=== PATIENT | male | born 1965 | race Caucasian/White ===

== ENCOUNTER → 2021-07-17 11:54 | Outpatient (BNVA) | payer SELFPAY | PROVIDERS: Visit Provider Registered Nurse Neonatal Intensive Care | DX: N39.0 Urinary tract infection, site not specified (principal); M54.9 Dorsalgia, unspecified | CPT/HCPCS: 81000 ==

== ENCOUNTER 2021-09-14 11:34 | Emergency (ER) | payer OTHER, SELFPAY ==
[2021-09-14 11:41] VITALS: BP 190/100; PULSE 76; RESP 18; TEMP 36.5; O2SAT 99
--- NOTE | 2021-09-14 11:45 | ED_ITS ---
HPI - Fall General: Chief Complaint: Fall Stated Complaint: Fell a few weeks ago, hit his right side Time Seen by Provider: 09/14/21 11:44 Source: patient Mode of arrival: ambulatory Limitations: no limitations History of Present Illness: 55-year-old male who fell 2 weeks ago while working. He hit the end of the log when he fell. He has not had any hematuria no vomiting no diarrhea. This occurred 2 weeks ago is still mildly tender he states. He has been eating and drinking without difficulty bowel movements have been normal. No hematuria. No other injuries at time of the fall. MD complaint: fall Onset (ago): week(s) (2) Fall from: standing Place fall occurred: home Loss of consciousness: None Prolonged down time: no Symptoms prior to fall: none Context: tripped/slipped Location of injury: abdomen Severity: mild Quality: dull and aching Associated symptoms-after fall: Reports abdominal pain; Denies chest pain, confusion, difficulty walking, headache(s), hematuria, lightheadedness, neck pain, numbness, short of breath, vertigo or weakness Review of Systems Const: Denies: fever(s), chills, body aches, change in appetite, fatigue or malaise ENMT: Denies: throat pain, ear or mastoid pain, nasal discharge or nasal congestion Card: Denies: chest pain or lightheadedness Resp: Denies: dyspnea, productive cough or non-productive cough GI: Reports: abdominal pain; Denies: nausea, vomiting, hematemesis, coffee ground emesis, early satiety, diarrhea, bloating or GI cramping : Denies: flank pain, difficulty urinating, dysuria, urinary frequency, urinary urgency or hematuria Musc: Denies: neck pain Skin/Breast: Denies: rash or pruritus Neuro: Denies: headache(s), difficulty walking, vertigo or confusion PFSH ED PFSH: Medical History (Updated 09/14/21 @ 13:05 by Tramaine Walton DO) No significant past medical history Surgical History (Updated 09/14/21 @ 11:54 by Tramaine Walton DO) No significant past surgical history Social History (Updated 09/14/21 @ 11:54 by Tramaine Walton DO) Smoking and tobacco status: never smoked Alcohol intake: never Physical Exam Const: COMMON NORMALS: no acute distress GENERAL APPEARANCE: cooperative and comfortable ORIENTATION/CONSCIOUSNESS: Yes awake, Yes oriented to person, Yes oriented to place and Yes oriented to time HENMT: COMMON NORMALS: normocephalic, atraumatic and hearing grossly normal bilaterally HEAD & SCALP: normocephalic and atraumatic Neck/C-Spine: COMMON NORMALS: no JVD Resp: COMMON NORMALS: normal respiratory effort, No retractions, No use of accessory muscles and clear to auscultation bilaterally AUSCULTATION: clear to auscultation bilaterally Cardio: COMMON NORMALS: no JVD, regular rate, regular rhythm and No murmurs present (Cardio) RATE: regular rate RHYTHM: regular rhythm GI: COMMON NORMALS: Soft to palpation and No hepatosplenomegaly present AUSCULTATION: Yes normoactive bowel sounds PALPATION: Yes Soft to palpation, No Tenderness to palpation present (GI), No Guarding due to palpation present (G I) and Yes No hepatosplenomegaly present Extremity: COMMON NORMALS: normal to inspection, capillary refill normal, no clubbing, cyanosis or edema, no calf tenderness and no pedal edema Neuro: SENSORIUM/ORIENTATION: Yes oriented to person, Yes oriented to place and Yes oriented to time Skin: COMMON NORMALS: no rashes or lesions noted GENERAL SKIN EXAM: no rashes or lesions noted Course Vital Signs: Vital signs: Vital Signs Temperature 97.7 F 09/14/21 11:41 Pulse Rate 76 09/14/21 11:41 Respiratory Rate 18 09/14/21 11:41 Blood Pressure 190/100 09/14/21 11:41 Pulse Oximetry 99 09/14/21 11:41 MDM - Fall Medical Decision Making Labs unremarkable repeat exam negative. His hemoglobin is good his abdominal exam is benign. He has no pain with palpation over the ribs on that side is a very faint bruise on the lateral portion abdominal wall. His has not had any vomiting or diarrhea his bowels been working well this happened 2 weeks ago. No advanced imaging indicated at this time we will have him use diclofenac as needed follow-up as needed. Medical Records I reviewed the patient's medical records. Lab Data I reviewed the patient's lab results. : 09/14/21 11:58 09/14/21 12:17 Laboratory Results WBC 8.4 10^3/uL (4.0-10.0) 09/14/21 11:58 RBC 5.41 10^6/uL (4.1-5.3) H 09/14/21 11:58 Hgb 15.4 g/dL (11.7-16.6) 09/14/21 11:58 Hct 46.6 % (42.0-52.0) 09/14/21 11:58 MCV 86.1 fl (80-94) 09/14/21 11:58 MCH 28.5 pg (28.0-34.0) 09/14/21 11:58 MCHC 33.0 g/dL (30.0-36.0) 09/14/21 11:58 RDW 13.1 % (12.1-15.1) 09/14/21 11:58 Plt Count 300 10^3/cmm (130-400) 09/14/21 11:58 MPV 9.7 fL (7.4-10.4) 09/14/21 11:58 Neut % (Auto) 71.7 % 09/14/21 11:58 Lymph % (Auto) 18.0 % 09/14/21 11:58 [place] % (Auto) 7.6 % 09/14/21 11:58 Eos % (Auto) 1.5 % 09/14/21 11:58 Baso % (Auto) 0.4 % 09/14/21 11:58 Neut # (Auto) 6.04 10^3/uL (1.8-7.7) 09/14/21 11:58 Lymph # (Auto) 1.5 10^3/uL (0.8-4.8) 09/14/21 11:58 [place] # (Auto) 0.6 10^3/uL (0.2-0.9) 09/14/21 11:58 Eos # (Auto) 0.1 10^3/uL (0.0-0.8) 09/14/21 11:58 Baso # (Auto) 0.0 10^3/uL (0.0-0.1) 09/14/21 11:58 Nucleated RBC % (auto) 0 % 09/14/21 11:58 Nucleated RBCs # 0.0 /100WBC 09/14/21 11:58 Sodium 139 mmol/L (136-145) 09/14/21 12:17 Potassium 3.9 mmol/L (3.5-5.1) 09/14/21 12:17 Chloride 105 mmol/L (98-107) 09/14/21 12:17 Carbon Dioxide 24 mmol/L (22-29) 09/14/21 12:17 Anion Gap 13.9 (5-19) 09/14/21 12:17 BUN 12 mg/dL (6-20) 09/14/21 12:17 Creatinine 0.9 mg/dL (0.7-1.2) 09/14/21 12:17 GFR Calculation 87.0 mL/min (90-130) L 09/14/21 12:17 Glucose 117 mg/dL (65-115) H 09/14/21 12:17 Calculated Osmolality 289 mOsm/kg (285-295) 09/14/21 12:17 Calcium 8.9 mg/dL (8.5-10.5) 09/14/21 12:17 Urine Color Yellow (Yellow) 09/14/21 11:50 Urine Appearance Clear (CLEAR) 09/14/21 11:50 Urine pH 8 (5-7) H 09/14/21 11:50 Ur Specific [place] 1.010 (1.005-1.030) 09/14/21 11:50 Urine Protein Neg (Negative) 09/14/21 11:50 Urine Glucose (UA) Norm (Normal) 09/14/21 11:50 Urine Ketones Negative (Negative) 09/14/21 11:50 Urine Blood Neg (Negative) 09/14/21 11:50 Urine Nitrate Negative (Negative) 09/14/21 11:50 Urine Bilirubin Neg (Negative) 09/14/21 11:50 Prot Sulfosalicylic Acd Negative (Negative) 09/14/21 11:50 Urine Urobilinogen Norm mg/dL (Negative) 09/14/21 11:50 Ur Leukocyte Esterase Negative (Negative) 09/14/21 11:50 Discharge Plan Discharge Patient Disposition: Home Clinical Impression: Abdominal wall pain Condition: Stable Prescriptions: New diclofenac sodium 75 mg tablet,delayed release (DR/EC) 75 mg PO Q12H PRN (Reason: pain) Qty: 20 0RF No Action baclofen 5 mg tablet 5 mg PO TID PRN (Reason: muscle spasm) Qty: 20 0RF Discharge Orders: Discharge ED (Routine); Ordered 09/14/21 Ordered By: Tramaine Walton Discharge Diet: Usual diet Discharge Activity: Resume usual activity Patient Instructions: Opioid Safety Coding Level of Care Code ED Reimbursement Rep for Ethel Fwd Exam Comprehensive
[2021-09-14 12:07] LABS: Basophils % 0.4 %; Eosinophils # 0.1 10^3/uL (0.0-0.8); Eosinophils % 1.5 %; Hematocrit 46.6 % (42.0-52.0); Hemoglobin 15.4 g/dL (11.7-16.6); Lymphocytes # 1.5 10^3/uL (0.8-4.8); Mean Corpuscular Hemoglobin 28.5 pg (28.0-34.0); Mean Corpuscular Volume 86.1 fl (80-94); Mean Platelet Volume 9.7 fL (7.4-10.4); Monocytes # 0.6 10^3/uL (0.2-0.9); Monocytes % 7.6 %; Neutrophils # 6.04 10^3/uL (1.8-7.7); Neutrophils % 71.7 %; Nucleated Red Blood Cells % 0 %; Platelet Count 300 10^3/cmm (130-400); Red Blood Count 5.41 10^6/uL (4.1-5.3); Red Cell Distribution Width 13.1 % (12.1-15.1); White Blood Count 8.4 10^3/uL (4.0-10.0)
[2021-09-14 12:14] LABS: Add Urine Microscopic? NO; Charge for UA Resulting for Rev
[2021-09-14 12:24] LABS: Bilirubin Urine Neg (Negative); Blood Urine Neg (Negative); Glucose Urine UA Norm (Normal); Ketones Urine Negative (Negative); Leukocyte Esterase Urine Negative (Negative); Nitrate Urine Negative (Negative); Protein Urine Neg (Negative); Sulfosalicylic Acid Urine Negative (Negative); Urine Appearance Clear (CLEAR); Urine Color Yellow (Yellow); Urobilinogen Urine Norm (Negative); pH Urine 8 (5-7)
[2021-09-14 12:48] LABS: Anion Gap 13.9 (5-19); Blood Urea Nitrogen 12 mg/dL (6-20); Calcium 8.9 mg/dL (8.5-10.5); Carbon Dioxide 24 mmol/L (22-29); Chloride 105 mmol/L (98-107); Glucose 117 mg/dL (65-115); Osmolality Calculated 289 mOsm/kg (285-295); Potassium 3.9 mmol/L (3.5-5.1); Sodium 139 mmol/L (136-145)
== END 2021-09-14 13:22 | disposition home or self-care (01) ==
PROVIDERS: Emergency Provider Family Medicine
DX: R10.9 Unspecified abdominal pain (principal)
CPT/HCPCS: 80048; 81003; 85025; 99282

== ENCOUNTER → 2022-01-03 17:17 | Outpatient (BNVA) | payer OTHER, SELFPAY | PROVIDERS: Visit Provider Emergency Medicine | DX: Z20.822 Contact with and (suspected) exposure to COVID-19 (principal); J06.9 Acute upper respiratory infection, unspecified | CPT/HCPCS: 87426 ==

== ENCOUNTER 2022-01-17 15:06 | Emergency (ER) | payer OTHER, SELFPAY ==
[2022-01-17 15:10] VITALS: BMI 35.2
--- NOTE | 2022-01-17 15:13 | XR_ITS ---
WS: [id number] Left knee, 3 views, 01/17/2022 Clinical Data: left knee pain Comparison: None. Findings: No fractures or dislocations are seen. There is medial joint compartment narrowing with spurring of t he medial femoral condyle. The patella has posterior spurring. The soft tissues are unremarkable. XR/XR knee LT 3V* [id number] Impression: Moderate osteoarthritis involving the medial joint compartment and posterior pa tella of the left knee Kellgren-Neri Classification: grade 3 (moderate): moderate multiple osteoph ytes, definite narrowing of joint space and some sclerosis and possible deformi ty of bone ends
--- NOTE | 2022-01-17 15:39 | W.ED.EXTPRO ---
HPI - Extremity Problem General: Chief complaint: Extremity Injury, Lower Stated complaint: left knee pain Time Seen by Provider: 01/17/22 15:32 Source: patient Mode of arrival: ambulatory Limitations: no limitations History of Present Illness: 56-year-old male presents to the ER today for left knee pain and swelling for the last several days. Patient reports he does not know of any known injury but he woke up one morning and his knee was swollen. He reports since that swelling started he has had worse pain with weightbearing and movement. He denies tenderness to the touch. Patient denies a history of knee problems or surgeries. Patient denies any history of gout. Patient reports he is taking [id number]-[id number] medications with only minimal relief. Review of Systems General: Reports: 10 or more systems reviewed and unremarkable except in HPI and below PFSH ED PFSH: Medical History No significant past medical history Surgical History No significant past surgical history Social History Smoking and tobacco status: never smoked Alcohol intake: never Physical Exam Const: COMMON NORMALS: no acute distress, average body habitus, patient oriented x3, no limitations, healthy appearing, alert and well nourished Resp: COMMON NORMALS: normal respiratory effort EFFORT & INSPECTION: Yes able to speak in complete sentences Cardio: COMMON NORMALS: regular rate and regular rhythm RATE: regular rate RHYTHM: regular rhythm Back/Pelvis: COMMON NORMALS: no thoracic nor lumbar tenderness and thoraco-lumbar ROM normal Extremity: NARRATIVE EXTREMITY EXAM: Patient has mild swelling of the left knee in comparison to the right. Mild tenderness to palpation over the medial joint line otherwise stable ligaments on exam. Neuro: COMMON NORMALS: patient oriented x3 SENSORIUM/ORIENTATION: Yes alert Psych: COMMON NORMALS: mental status grossly normal, Normal thought process present and cooperative THOUGHT PROCESS: Normal thought process present Skin: COMMON NORMALS: no rashes or lesions noted and no wounds GENERAL SKIN EXAM: no rashes or lesions noted Course ED course: 56-year-old male presents to the ER today for left knee pain and swelling for the last several days. Patient reports he does not know of any known injury but he woke up one morning and his knee was swollen. He reports since that swelling started he has had worse pain with weightbearing and movement. He denies tenderness to the touch. Patient denies a history of knee problems or surgeries. Patient denies any history of gout. Patient reports he is taking [id number]-[id number] medications with only minimal relief. We will get an x-ray of the left knee at this time. Vital Signs: Vital signs: Vital Signs Oxygen Delivery Me thod 01/17/22 15:10 MDM - Extremity (Nontraumatic) Medical Decision Making 56-year-old male presents to the ER today for left knee pain for the last several days. Patient has no known injury and no history of knee problems. Patient reports he woke up 1 morning and noticed swelling and since the swelling started he has had increased pain. Patient reports he is taking aapa-ehp-vzltdvk medications with only minimal relief. Exam is mostly unremarkable other than some mild swelling. Likely some arthritis changes. X-ray also confirms this. Patient has narrowing of the medial joint compartment in addition to spurring. Likely patient's arthritis is flared up from recent overuse. I recommended patient try meloxicam. Do not take ibuprofen with it at home. We will also try glucosamine/chondroitin. Patient should follow-up with his PCP in 10 to 14 days if no improvement. Rest, ice, elevation recommended. Patient may need additional imaging in the future versus benefiting from a steroid injection in the joint. Return to the ER with new or worsening symptoms. Patient verbalized understanding and was in agreement with the treatment plan. Lab Data Radiology Impressions Knee X-Ray 01/17/22 15:13 Impression: Moderate osteoarthritis involving the medial joint compartment and posterior patella of the left knee Kellgren-Neri Classification: grade 3 (moderate): moderate multiple osteophytes, definite narrowing of joint space and some sclerosis and possible deformity of bone ends Critical Care Time Critical Care Time: Critical Care Time: No Discharge Plan Discharge Patient Disposition: Home Clinical Impression: Acute pain of left knee Condition: Stable Prescriptions: New meloxicam 15 mg tablet 15 mg PO DAILY Qty: 30 0RF No Action [id number] [Bromfed DM] 2-30-10 mg/5 mL syrup 10 ml PO Q4H PRN (Reason: cold symptoms) Qty: 118 0RF Discharge Orders: Discharge ED (Routine); Ordered 01/17/22 Ordered By: Clair Matos Discharge Diet: Usual diet Discharge Activity: Increase activity as tolerated Patient Instructions: Opioid Safety, Pain Management Activity Restrictions/Additional Instructions: Take meloxicam as prescribed. I recommend glucosamine/chondroitin to be taken daily. This can be bought [id number]. Recommend ice and elevation to reduce swelling. Follow-up with PCP in 10 to 14 days if no improvement. Return to the ER with new or worsening symptoms. Coding Level of Care Code ED Day Care Supervisor for Ethel Fwdanika Exam Detailed
== END 2022-01-17 16:08 | disposition home or self-care (01) ==
PROVIDERS: Emergency Provider Physician Assistant
DX: M25.562 Pain in left knee (principal)
CPT/HCPCS: 73562; 99283